=== PATIENT | male | born 1950 | race Caucasian/White ===

== ENCOUNTER 2020-12-18 20:41 | Inpatient (IN) | payer MEDICARE ==
[~2020-12-18] VITALS: Ht 170.2 cm; Wt 93.1 kg
[2020-12-18] MEDS ORDERED: EPINEPHRINE (1:1000) 1 MG/ML AMPUL ONE ×2 (20:54→21:09)
--- NOTE | 2020-12-18 20:58 | NUR ---
PATIENT CAME TO THE ER BED 5 BIBSELF C/O SWOLLEN TONGUE AND FEELS LIKE HIS THROAT IS CLOSING. PATIENT DENIES SHORTNESS OF BREATH. PATIENT IS CALM. PATIENT DENIES TAKING ANY MEDICATION EXCEPT HIS HYPERTENSION MEDICATION IN THE MORNING. ALERT AND ORIENTED x4. BREATHING EVENLY AND UNLABORED ON ROOM AIR AT 95%. CONNECTED TO THE SPANISHER.
[2020-12-18] MEDS ORDERED: NS 0.9% IV ONE (21:00)
[2020-12-18] MEDS ORDERED: TRANEXAMIC ACID IV ONE (21:00)
[2020-12-18] MEDS ORDERED: DEXAMETHASONE SOD PHOSPHATE 10 MG/ML VIAL IV ONE (21:00)
[2020-12-18] MEDS ORDERED: diphenhydrAMINE HCL 50 MG/ML VIAL IV ONE (21:00)
[2020-12-18] MEDS ORDERED: EPINEPHRINE (1:1000) MDV 30 MG/30ML VIAL SUBCUT ONE (21:00)
--- NOTE | 2020-12-18 21:05 | NUR ---
PATIENT'S DAUGHTER(S) LEFT NUMBERS: MIHAELA [phone] KATT [phone]
[2020-12-18] MEDS ORDERED: DEXAMETHASONE SOD PHOSPHATE 10 MG/ML VIAL ONE (21:10)
[2020-12-18] MEDS ORDERED: diphenhydrAMINE HCL 50 MG/ML VIAL ONE (21:10)
[2020-12-18 21:17] LABS: BASOPHILS # (AUTO) 0.2 K/uL (0.0-0.2); BASOPHILS % (AUTO) 3.7 % (0.0-2.0); EOSINOPHILS % (AUTO) 3.9 % (0.0-6.0); HEMATOCRIT 41 % (39-51); HEMOGLOBIN 13.9 g/dL (13.5-17.5); LYMPHOCYTES # (AUTO) 0.9 K/uL (0.8-4.8); LYMPHOCYTES % (AUTO) 21.3 % (20.0-44.0); MEAN CORPUSCULAR HGB CONC 34 g/dl (31.0-36.0); MEAN CORPUSCULAR VOLUME 99 fL (80-96); MONOCYTES # (AUTO) 0.6 K/uL (0.1-1.30); MONOCYTES % (AUTO) 13.8 % (2.0-12.0); NEUTROPHILS # (AUTO) 2.5 K/uL (1.8-8.9); NEUTROPHILS % (AUTO) 57.3 % (43.0-81.0); PLATELET COUNT (AUTO) 177 K/uL (150-450); RED BLOOD CELL COUNT(AUTO) 4.13 MIL/uL (4.5-6.0); WHITE BLOOD COUNT (AUTO) 4.3 K/uL (4.3-11.0)
[2020-12-18 21:24] LABS: CALCIUM, SERUM 8.5 mg/dL (8.5-10.1); CREATININE 0.8 mg/dL (0.6-1.3); POTASSIUM 3.6 mmol/L (3.5-5.1)
--- NOTE | 2020-12-18 21:42 | NUR ---
MOVE SHEET SUBMITTED AND CALLED FOR BED.
--- NOTE | 2020-12-18 21:44 | NUR ---
HOSPITALIST SPEAKING WITH DR. CARBAJAL.
--- NOTE | 2020-12-18 21:58 | NUR ---
COVID SWAB DONE AND SENT TO LAB
--- NOTE | 2020-12-18 22:14 | NUR ---
RECIEVED BED 251
[2020-12-18] MEDS ORDERED: ONDANSETRON HCL/PF 4 MG/2 ML VIAL IVP PRN (22:30)
[2020-12-18] MEDS ORDERED: ACETAMINOPHEN 325 MG TABLET PO PRN (22:30)
--- NOTE | 2020-12-18 22:31 | NUR ---
REPORT GIVEN TO MIO ZAPATA FOR CLARENCE
--- NOTE | 2020-12-18 22:45 | NUR ---
PT WAS TRANSPORTED TO UNIT ON [facility] EMT ADN RN AT BEDSIDE W/ ACLS PROTOCOL. NAD NOTED DURING TRANSPORT.
--- NOTE | 2020-12-18 23:00 | NUR ---
LEACH TANK TENDER: ADMITTED PT TO ICU FROM ED FOR ANGIOEDEMA. PT IS A/OX4, ON 2L 02 VIA NC. NO ACUTE DISTRESS, NO C/O PAIN. NOTED UNCLEAR SPEECH DUE TO TONGUE SWELLING. SR ON DENTAL SECRETARY. SKIN CHECK ASSESSED WITH GENERALIZED PSORIASIS PER PATIENT. PICTURES TAKEN. PT. GAVE CONSENT FOR PLASMA TRANSFUSION. HOB ON HIGH-WILL'S FOR ELEVATED BP, BED IN LOWEST POSITION AND LOCKED, BED ALARM ACTIVATED, SIDE RAILS UPX2. CALL LIGHT WITHIN REACH. WILL CONTINUE TO MONITOR. AWAITING FOR BLOOD BANK TO RELEASE PLASMA.
[2020-12-18 23:05] VITALS: BP 161/94
--- NOTE | 2020-12-18 23:09 | NUR ---
PHARMACY CALLED TO SELVIN TXA ORDER. ORDER DID NOT SHOW UP ON EMAR TUS MEDICATION WAS NOT GIVEN. UNFORTUNATELY ORDER DOES NOT HAVE DOSAGE. SPOKE WITH OSMEL ROJO NP REGARDING THE TXA IF HE WANTS IT TO BE GIVEN. NO NEED FOR TXA D/T PT IS GOING TO RECEIVE FRESH FROZEN PLASMA.
[2020-12-18 23:15] VITALS: BP 168/92
[2020-12-18] MEDS: ENOXAPARIN SODIUM 40 MG/0.4 ML DISP.SYRIN SQ SCH (23:17)
[2020-12-18 23:30] VITALS: BP 169/98
[2020-12-18 23:46] VITALS: BP 169/99
[2020-12-19] VITALS (68 sets, daily range): BP systolic 123–183; BP diastolic 77–114
[2020-12-19] MEDS ORDERED: hydrALAZINE HCL IV 20 MG VIAL IV PRN ×2 (01:30→03:45)
--- NOTE | 2020-12-19 01:55 | NUR ---
ARCHITECTURE DEPARTMENT CHAIR: FIRST UNIT OF FFP TRANSFUSION STARTED. PT GIVEN HYDRALAZINE FOR ELEVATED BP PRIOR TO TRANSFUSION. STILL HIGH BP NOTED. VERBALIZED RELIEF FROM HEADACHE AFTER GIVEN TYLENOL. WILL CONTINUE TO MONITOR.
--- NOTE | 2020-12-19 03:35 | NUR ---
INFORMATION SECURITY SPECIALIST: 1 UNIT FFP TRANSFUSED WT NO ADVERSE REACTIONS. BP STILL ELEVATED DESPITE S/P HYDRALAZINE. PAGED HOSPITALIST. AWAITNG CALL BACK.
--- NOTE | 2020-12-19 03:44 | NUR ---
ADVERTISING COPY WRITER: OSMEL ROJO DNP HOSPITALIST CALLED BACK AND MADE AWARE OF UNRESOLVED ELEVATED BP. DNP WT ORDER TO INCREASE HYDRALAZINE TO 10MG Q4H FOR SBP ABOVE 170 AND OK TO GIVE DOSE ANYTIME NEEDED. NOTED AND CARRIED OUT.
--- NOTE | 2020-12-19 05:30 | NUR ---
MOTHER HELPER: 2ND UNIT FFP TRANSFUSED WT NO ADVERSE REACTIONS. PT STILL NOTED WT ELEVATED BP SINCE ADMISSION & EVEN WITH 2ND DOSE OF INCREASED HYDRALAZINE ADMINISTRATION. SOUNDSCRIBER MECHANIC HOSPITALIST PAGED. AWAITING CALL BACK.
[2020-12-19] MEDS ORDERED: CARV12.5 PO (05:51)
[2020-12-19] MEDS ORDERED: AMLO5TAB4 PO (05:51)
[2020-12-19] MEDS ORDERED: MONT10TA22 PO (06:36)
[2020-12-19] MEDS ORDERED: ASPI-1169 PO (06:36)
--- NOTE | 2020-12-19 06:50 | NUR ---
METAL FURNITURE PANEL COVERER: HOSPITALIST CALLED BACK AND MADE AWARE OF CONTINUED ELEVATED BP THROUGHOUT THE SHIFT. MED RECON. DONE WT THE PATIENT. DNP SAID HE WILL PLACE ORDERS. SO SIGNIFICANT CLARENCE. STILL WT UNCLEAR SPEECH DUE TO TONGUE SWELLING. SR-ST WT HR IN LOW 100s WHEN STANDING UP TO VOID. AM LAB BLOOD DRAWN. SAFETY PRECAUTION NOTED AT ALL TIMES.
[2020-12-19 06:54] LABS: BASOPHILS % (AUTO) 0.9 % (0.0-2.0); HEMATOCRIT 44 % (39-51); HEMOGLOBIN 15.1 g/dL (13.5-17.5); LYMPHOCYTES # (AUTO) 0.4 K/uL (0.8-4.8); LYMPHOCYTES % (AUTO) 9.1 % (20.0-44.0); MEAN CORPUSCULAR HGB CONC 35 g/dl (31.0-36.0); MEAN CORPUSCULAR VOLUME 98 fL (80-96); MONOCYTES % (AUTO) 1.1 % (2.0-12.0); NEUTROPHILS # (AUTO) 3.5 K/uL (1.8-8.9); NEUTROPHILS % (AUTO) 88.9 % (43.0-81.0); PLATELET COUNT (AUTO) 179 K/uL (150-450); RED BLOOD CELL COUNT(AUTO) 4.45 MIL/uL (4.5-6.0); WHITE BLOOD COUNT (AUTO) 3.9 K/uL (4.3-11.0)
[2020-12-19 07:01] LABS: CREATININE 0.7 mg/dL (0.6-1.3); POTASSIUM 3.8 mmol/L (3.5-5.1)
--- NOTE | 2020-12-19 07:30 | NUR ---
LAY OUT WORKER OPENING NOTE PT SEATED IN BED EATING BREAKFAST, A/Ox4, BREATHING RA, SPO2 95%, NO SIGNS OF RESP DISTRESS OR SOB. PT DENIES PAIN AT THIS MOMENT. PT ON TELE MONITOR SR 90'S TO ST 100'S. PT SKIN INTACT, PATCHES OF PSORIASIS NOTED. PT RAC # 18 AND LT HAND #18, FLUSHED, PATENT AND INTACT, BOTH SL. NO SWELLING NOTED IN TONGUE. PT ABLE TO STAND AND USE URINAL. ALL PT SAFETY PRECAUTIONS IN PLACE, WILL CONT TO MONITOR
--- NOTE | 2020-12-19 07:40 | NUR ---
WOUND CARE CONSULT: PT PRESENTS WITH SOME PATCHES OF PSORIASIS, PRESENT ON ADMISSION. PT IS INDEPENDENT WITH BED MOBILITY AND IS CONTINENT. PT STATES WILL FOLLOW UP WITH HIS AEROSPACE PROJECT ENGINEER AFTER DISCHARGE. WILL SEE PRN.
[2020-12-19 07:50] LABS: MAGNESIUM 1.2 mg/dL (1.8-2.4)
--- NOTE | 2020-12-19 08:30 | NUR ---
RN NOTE DR CABRERA AWARE OF PT MG LEVEL OF 1.2
[2020-12-19] MEDS: Magnesium 1GM/D5W 100ML PREMIX 100 ML IV SCH ×4 (08:47→12:33)
[2020-12-19] MEDS: AMLODIPINE BESYLATE 10 MG TABLET PO SCH (08:47)
[2020-12-19] MEDS: MONTELUKAST SODIUM (10MG) 10 MG TABLET PO SCH (08:47)
[2020-12-19] MEDS: ASPIRIN 81 MG TAB.CHEW PO SCH (08:47)
[2020-12-19] MEDS: CARVEDILOL 12.5 MG TABLET PO SCH ×2 (08:47→16:02)
[2020-12-19] MEDS: PANTOPRAZOLE 40 MG VIAL IV SCH (08:47)
--- NOTE | 2020-12-19 13:21 | NUR ---
MIO N OTE TELEPHONE REPORT GIVEN TO MIO CRAIN
--- NOTE | 2020-12-19 13:58 | NUR ---
RN NOTE PT TRANSFERRED TO ROM 308-1 IN STABLE CONDITION. PT ON RA SPO2 >94%, NO SOB OR RESP DISTRESS. ALL PT SAFETY PRECAUTIONS IN PLACE. MIO CRAIN, RECEIVED PT IN ROOM
--- NOTE | 2020-12-19 14:09 | NUR ---
RN NOTE RECEIVED PT INTO BED 308-2. PT AWAKE AND ALERT AND IN STABLE CONDITION. WILL CONTINUE TO MONITOR.
--- NOTE | 2020-12-19 17:16 | NUR ---
RN NOTE PT MED OF CARVEDILOL 12.5 MG DROPPED AND CONTAMINATED. SECOND PILL DRAWN FROM PYXIS TO ADMINISTER TO PT.
--- NOTE | 2020-12-19 17:31 | NUR ---
RN CLOSING NOTE PT AWAKE IN BED EATING DINNER. PT IS ON RA WITH NO SOB OR RESPIRATORY DISTRESS PRESENT. A/O X4 AND MONGOLIAN SPEAKING. NO COMPLAINT OF PAIN OR NAUSEA PRESENT. ON POURER. NO EDEMA PRESENT. PT IS SELF AMBULATORY WITH BATHROOM PRIVILEGES. STEADY GAIT. PSORIASIS PRESENT. ON CARDIAC DIET. IV PRESENT ON L HAND 18G AND FLUSHES WELL. LABS AND ORDERS REVIEWED. ROUTINE MEDS GIVEN. SAFETY MEASURES IN PLACE. SIDE RAILS RAISED. BED LOWERED. CALL LIGHT WITHIN REACH. WILL CONTINUE TO MONITOR.
[2020-12-19] MEDS: ENOXAPARIN SODIUM 40 MG/0.4 ML DISP.SYRIN SQ SCH ×2 (21:45→21:55)
[2020-12-20] VITALS: BP 142/77
[2020-12-20 04:00] VITALS: BP 148/84
[2020-12-20 06:23] LABS: BASOPHILS % (AUTO) 0.5 % (0.0-2.0); EOSINOPHILS % (AUTO) 0.1 % (0.0-6.0); HEMATOCRIT 41 % (39-51); LYMPHOCYTES # (AUTO) 0.6 K/uL (0.8-4.8); LYMPHOCYTES % (AUTO) 9.2 % (20.0-44.0); MEAN CORPUSCULAR HGB CONC 35 g/dl (31.0-36.0); MEAN CORPUSCULAR VOLUME 98 fL (80-96); MONOCYTES # (AUTO) 0.8 K/uL (0.1-1.30); NEUTROPHILS # (AUTO) 5.3 K/uL (1.8-8.9); NEUTROPHILS % (AUTO) 78.2 % (43.0-81.0); PLATELET COUNT (AUTO) 175 K/uL (150-450); RED BLOOD CELL COUNT(AUTO) 4.15 MIL/uL (4.5-6.0); WHITE BLOOD COUNT (AUTO) 6.8 K/uL (4.3-11.0)
[2020-12-20 07:21] LABS: CALCIUM, SERUM 8.9 mg/dL (8.5-10.1); CREATININE 0.8 mg/dL (0.6-1.3); MAGNESIUM 1.8 mg/dL (1.8-2.4); PHOSPHORUS 2.6 mg/dL (2.5-4.9); POTASSIUM 3.5 mmol/L (3.5-5.1)
--- NOTE | 2020-12-20 07:37 | NUR ---
RN OPENING NOTE PT AWAKE IN BED EATING BREAKFAST. PT IS ON RA WITH NO SOB OR RESPIRATORY DISTRESS PRESENT. A/O X4 AND NEW ZEALANDER SPEAKING. NO COMPLAINT OF PAIN OR NAUSEA PRESENT. ON STEAM SETTER. NO EDEMA PRESENT. PT IS SELF AMBULATORY WITH BATHROOM PRIVILEGES. STEADY GAIT. PSORIASIS PRESENT. ON CARDIAC DIET. IV PRESENT ON L HAND 18G AND FLUSHES WELL. LABS AND ORDERS REVIEWED. SAFETY MEASURES IN PLACE. SIDE RAILS RAISED. BED LOWERED. CALL LIGHT WITHIN REACH. WILL CONTINUE TO MONITOR
[2020-12-20 08:00] VITALS: BP 162/93
[2020-12-20] MEDS: MONTELUKAST SODIUM (10MG) 10 MG TABLET PO SCH (08:42)
[2020-12-20] MEDS: ASPIRIN 81 MG TAB.CHEW PO SCH (08:42)
[2020-12-20 08:43] VITALS: BP 162/93
[2020-12-20] MEDS: AMLODIPINE BESYLATE 10 MG TABLET PO SCH (08:43)
[2020-12-20] MEDS: PANTOPRAZOLE 40 MG VIAL IV SCH (08:43)
[2020-12-20] MEDS: CARVEDILOL 12.5 MG TABLET PO SCH (08:43)
--- NOTE | 2020-12-20 14:34 | NUR ---
RN NOTE RECEIVED NOTE FROM ROGER FROM [facility] THAT PT IS MRSA POSITIVE. NO S/S OF DISTRESS. MD AWAKE. NO NEW ORDERS. WILL CONTINUE TO MONITOR.
[2020-12-20] MEDS ORDERED: CARV12.52 PO (15:38)
[2020-12-20] MEDS ORDERED: AMLO-213 PO (15:38)
[2020-12-20] MEDS ORDERED: CARVEDILOL 12.5 MG TABLET PO SCH (17:00)
== END 2020-12-20 14:55 | disposition home or self-care (01) | DRG 916 ==
LOC: ER 20:41 → TRANSITION 22:01 → ICU 22:19 → TELE 12-19 13:55
PROVIDERS: ADMIT Nurse Practitioner Family; ATTEND Student in an Organized Health Care Education/Training Program
PROC: 30233K1 Transfusion of Nonautologous Frozen Plasma into Peripheral Vein, Percutaneous Approach (ICD-10-PCS; principal; 2020-12-19)
DX: T78.3XXA Angioneurotic edema, initial encounter (principal); T46.4X5A Adverse effect of angiotensin-converting-enzyme inhibitors, initial encounter; Y84.8 Other medical procedures as the cause of abnormal reaction of the patient, or of later complication, without mention of misadventure at the time of the procedure; Y92.009 Unspecified place in unspecified non-institutional (private) residence as the place of occurrence of the external cause; Z20.822 Contact with and (suspected) exposure to COVID-19; E78.5 Hyperlipidemia, unspecified; Y92.039 Unspecified place in apartment as the place of occurrence of the external cause; Z82.49 Family history of ischemic heart disease and other diseases of the circulatory system; Z88.0 Allergy status to penicillin; E83.42 Hypomagnesemia; I10 Essential (primary) hypertension; L40.9 Psoriasis, unspecified; Z90.49 Acquired absence of other specified parts of digestive tract
CPT/HCPCS: 36415; 80048-TC; 80061-TC; 83735-TC; 84100-TC; 85025-TC; 86850-TC; 87081-TC; C9113; G0378; J0171; J0360; J1100; J1200; J1650; J3475; J7050; P9017

== ENCOUNTER 2021-05-08 16:28 | Inpatient (IN) | payer MEDICARE ==
[~2021-05-08] VITALS: Ht 167.6 cm; Wt 90.7 kg
[~2021-05-08 16:28] MED LIST: AMLO-213 PO; AMLO5TAB4 PO; ASPI-1169 PO; CARV12.5 PO; CARV12.52 PO; MONT10TA22 PO
--- NOTE | 2021-05-08 16:39 | NUR ---
To ER bed 16, "Last wednesday while walking home I was wheezing. Feel SOB", aaox3, connected to monitor, awaiting md orders
--- NOTE | 2021-05-08 16:40 | NUR ---
OXYGEN SATURATION IN ROOM AIR IS AT 91%. THE PATIENT IS PLACED ON OXYGEN AT 3L/MIN VIA NASAL CANNULA AND SATURATION LEVEL IMPORVED TO 95%.
--- NOTE | 2021-05-08 16:42 | NUR ---
DR ROCHE AT THE BEDSIDE
[2021-05-08] MEDS ORDERED: ASPIRIN 325 MG TABLET PO ONE (17:00)
[2021-05-08] MEDS ORDERED: NITROGLYCERIN PACKET 1 GM PACKET TD ONE (17:00)
[2021-05-08] MEDS ORDERED: NITROGLYCERIN PACKET 1 GM PACKET ONE (17:07)
[2021-05-08] MEDS ORDERED: ASPIRIN 325 MG TABLET ONE (17:08)
[2021-05-08 17:33] LABS: BASOPHILS # (AUTO) 0.1 K/uL (0.0-0.2); EOSINOPHILS % (AUTO) 5.5 % (0.0-6.0); HEMATOCRIT 20 % (39-51); LYMPHOCYTES # (AUTO) 0.8 K/uL (0.8-4.8); LYMPHOCYTES % (AUTO) 17.2 % (20.0-44.0); MEAN CORPUSCULAR HGB CONC 31 g/dl (31.0-36.0); MEAN CORPUSCULAR VOLUME 76 fL (80-96); MONOCYTES # (AUTO) 0.6 K/uL (0.1-1.30); MONOCYTES % (AUTO) 14.3 % (2.0-12.0); NEUTROPHILS # (AUTO) 2.7 K/uL (1.8-8.9); PLATELET COUNT (AUTO) 276 K/uL (150-450); RED BLOOD CELL COUNT(AUTO) 2.68 MIL/uL (4.5-6.0); WHITE BLOOD COUNT (AUTO) 4.4 K/uL (4.3-11.0)
[2021-05-08 17:34] LABS: HEMOGLOBIN 6.2 g/dL (13.5-17.5)
[2021-05-08 17:42] LABS: CALCIUM, SERUM 8.7 mg/dL (8.5-10.1); CARBON DIOXIDE 23 mmol/L (21-32); CHLORIDE 103 mmol/L (98-107); CREATININE 0.9 mg/dL (0.6-1.3); GLUCOSE 110 mg/dL (74-106); SODIUM SERUM 140 mmol/L (136-145); UREA NITROGEN, BLOOD 14 mg/dL (7-18)
--- NOTE | 2021-05-08 17:43 | NUR ---
COVID SWAB DONE AND SENT TO LAB
--- NOTE | 2021-05-08 17:48 | NUR ---
dr gresham at bedside
[2021-05-08 17:54] LABS: ALANINE AMINOTRANSFERASE 40 U/L (12-78); ALBUMIN 3.6 g/dL (3.4-5.0); ALKALINE PHOSPHATASE 83 U/L (46-116); ASPARTATE AMINOTRANSFERASE 67 U/L (15-37); BILIRUBIN,DIRECT 0.3 mg/dL (0.0-0.2)
--- NOTE | 2021-05-08 17:57 | NUR ---
PAGED [facility].
[2021-05-08 17:59] LABS: NEUTROPHILS % (MANUAL) 63 (42-76)
--- NOTE | 2021-05-08 17:59 | NUR ---
CALLED NURSING SUP REGARDING PT BED
[2021-05-08 18:00] LABS: EOSINOPHILS % (MANUAL) 8 % (0-4); LYMPHOCYTES % (MANUAL) 18 % (16-48); MONOCYTES % (MANUAL) 11 % (0-11.0)
[2021-05-08 18:19] LABS: OCCULT BLOOD STOOL NEGATIVE (NEGATIVE)
[2021-05-08] MEDS ORDERED: PANT40TA49 PO (18:28)
--- NOTE | 2021-05-08 19:30 | NUR ---
CALLED FOR BED ASSIGNMENT
[2021-05-08 20:30] VITALS: BP 143/64
--- NOTE | 2021-05-08 20:57 | NUR ---
REPORT GIVEN TO MIO BURNSCAITLYN
--- NOTE | 2021-05-08 21:30 | NUR ---
GARAGE DOOR INSTALLERFURRIER DESIGNER NOTES RECEIVED NEW ADMIT FROM ER PER NABOR THIS 70 Y.O. MALE,ALERT,ORIENTED X4,AMBULATORY WITH STEADY GAIT,BREATHING REGULAR,NOT IN ANY FORM OF DISTRESS.1 UNIT OF PRBC ONGOING VIA IV PUMP ON RIGHT AC,SITE PATENT.NOTED SKIN RASH ON ABDOMEN.PATIENT SAYS HE HAS PSORIASIS.ABDOMEN DISTENDED BUT SOFT.DENIES SOB UPON ARRIVAL ON FLOOR,O2 SAT 95% ON ROOM AIR.CALL LIGHT IN REACH,NEEDS ANTICIPATED.
--- NOTE | 2021-05-08 21:39 | NUR ---
PATIENT TRANSFERRED UNDER ACLS
[2021-05-08] MEDS ORDERED: MAGNESIUM HYDROXIDE 30 ML UDC PO PRN (22:00)
[2021-05-08] MEDS ORDERED: ONDANSETRON HCL/PF 4 MG/2 ML VIAL IVP PRN (22:00)
[2021-05-08] MEDS ORDERED: ZOLPIDEM TARTRATE 5 MG TABLET PO PRN (22:00)
[2021-05-08] MEDS ORDERED: Z GUARD REMEDY 2 OZ OINT TP PRN (22:00)
[2021-05-08] MEDS ORDERED: MAG HYDROX/AL HYDROX/SIMETH 30 ML UDC PO PRN (22:00)
[2021-05-08] MEDS: PANTOPRAZOLE 40 MG VIAL IV SCH (22:42)
[2021-05-08 23:20] VITALS: BP 126/67
--- NOTE | 2021-05-08 23:20 | NUR ---
DOCK BUILDER NOTES 1 UNIT OF PRBC COMPLETED.NO ADVERSE REACTION NOTED.VITAL SIGNS WITH IN NORMAL LIMITS
[2021-05-09] VITALS: BP 126/62
[2021-05-09] MEDS: ACETAMINOPHEN 325 MG TABLET PO PRN ×2 (00:55→06:58)
--- NOTE | 2021-05-09 00:55 | NUR ---
COURT SPECIALIST NOTES C/O HEADACHE,TYLENOL 650MG PO GIVEN ORDERED FOR MILD PAIN
[2021-05-09 04:00] VITALS: BP_SYST 126; BP_DIAS 62; BP_DIAS 67
--- NOTE | 2021-05-09 06:26 | NUR ---
HYDRAULIC PRESS OPERATOR NOTES FAIRLY RESTED AT NIGHT,NO SOB NOTED.O2 SAT 97 % ON ROOM AIR,WITH MORNING LABS TODAY,CALL LIGHT IN REACH,NEEDS ATTENDED.
--- NOTE | 2021-05-09 07:30 | NUR ---
GAS FITTER APPRENTICE OPENING NOTE RECEIVED PT AWAKE IN BED. A/O X4. PT IS STABLE ON RA WITH NO SOB OR S/S OF RESPIRATORY DISTRESS NOTED. PT ON EXTERNAL HEAD OF ACQUISITIONS READING SR. PT HAS NO C/O PAIN OR DISCOMFORT AT THIS TIME. IV ACCESS IN RAC #18, INTACT AND PATENT. SAFETY PRECAUTIONS MAINTAINED. BED IN LOWEST LOCKED POSITION, HOB ELEVATED, SIDE RAILS UP X2. CALL LIGHT AND TABLE WITHIN REACH. WILL CONTINUE TO MONITOR.
[2021-05-09 08:34] VITALS: BP 150/82
[2021-05-09] MEDS: MONTELUKAST SODIUM (10MG) 10 MG TABLET PO SCH (08:34)
[2021-05-09] MEDS: PANTOPRAZOLE 40 MG VIAL IV SCH ×2 (08:35→16:42)
[2021-05-09] MEDS: AMLODIPINE BESYLATE 10 MG TABLET PO SCH (08:35)
[2021-05-09] MEDS: CARVEDILOL 12.5 MG TABLET PO SCH ×2 (08:35→16:42)
[2021-05-09 11:50] LABS: CALCIUM, SERUM 8.3 mg/dL (8.5-10.1); CREATININE 0.8 mg/dL (0.6-1.3); POTASSIUM 3.8 mmol/L (3.5-5.1)
[2021-05-09 11:58] LABS: BASOPHILS # (AUTO) 0.1 K/uL (0.0-0.2); BASOPHILS % (AUTO) 1.7 % (0.0-2.0); EOSINOPHILS % (AUTO) 4.2 % (0.0-6.0); HEMATOCRIT 23 % (39-51); HEMOGLOBIN 7.2 g/dL (13.5-17.5); LYMPHOCYTES # (AUTO) 0.7 K/uL (0.8-4.8); LYMPHOCYTES % (AUTO) 13.7 % (20.0-44.0); MEAN CORPUSCULAR HGB CONC 32 g/dl (31.0-36.0); MEAN CORPUSCULAR VOLUME 78 fL (80-96); MONOCYTES # (AUTO) 0.7 K/uL (0.1-1.30); MONOCYTES % (AUTO) 15.4 % (2.0-12.0); NEUTROPHILS # (AUTO) 3.2 K/uL (1.8-8.9); PLATELET COUNT (AUTO) 230 K/uL (150-450); WHITE BLOOD COUNT (AUTO) 4.9 K/uL (4.3-11.0)
[2021-05-09 12:05] LABS: THYROID STIMULATING HORMONE 2.647 uIU/mL (0.358-3.74)
[2021-05-09 12:35] LABS: EOSINOPHILS % (MANUAL) 5 % (0-4); LYMPHOCYTES % (MANUAL) 13 % (16-48); MONOCYTES % (MANUAL) 14 % (0-11.0); NEUTROPHILS % (MANUAL) 68 (42-76)
[2021-05-09 16:18] VITALS: BP 150/82
[2021-05-09] MEDS: SOD FERRIC GLUC 125 MG in IV NS 0.9% 100 ML IV SCH (16:24)
--- NOTE | 2021-05-09 18:28 | NUR ---
GRAIN MILLER HELPER CLOSING NOTE PT AWAKE IN BED. A/O X4. PT ON 3 LPM VIA NC, O2 SAT 99%. NO SOB OR S/S OF RESPIRATORY DISTRESS NOTED. PT ON EXTERNAL COLLIERY CLERK READING SR @ 82. PT HAS NO C/O PAIN OR DISCOMFORT AT THIS TIME. IV ACCESS IN RAC #18, INTACT AND PATENT. ALL NEEDS MET AT THIS TIME. SAFETY PRECAUTIONS MAINTAINED AT ALL TIMES. BED IN LOWEST LOCKED POSITION, HOB ELEVATED, SIDE RAILS UP X2. CALL LIGHT AND TABLE WITHIN REACH. WILL ENDORSE TO ONCOMING NURSE FOR CLARENCE.
--- NOTE | 2021-05-09 19:27 | NUR ---
COLLECTION SYSTEMS MODELER OPENING NOTES RECEIVED PT AWAKE IN BED. A/O X4. PT ON 3 LPM VIA NC, O2 SAT 97%. NO SOB OR S/S OF RESPIRATORY DISTRESS NOTED. PT ON EXTERNAL COURSE INSTRUCTOR WITH CURRENT READING NSR, PVC HR 83. PT DENIES OF PAIN OR DISCOMFORT AT THIS TIME. IV ACCESS IN RAC #18, INTACT AND PATENT. SAFETY PRECAUTIONS MAINTAINED AT ALL TIMES. BED IN LOWEST LOCKED POSITION, HOB ELEVATED, SIDE RAILS UP X2. CALL LIGHT AND TABLE WITHIN REACH. WILL CONTINUE TO MONITOR PATIENT ACCORDINGLY.
--- NOTE | 2021-05-09 19:29 | NUR ---
LODGING FACILITIES ATTENDANT NOTES PER REPORT OF AM SHIFT NURSE, DR. FERNANDEZ ORDERED NPO POST M.N FOR GI CONSULT IN AM. NOTED AND COMMUNICATED WITH PT. AND STAFF.
[2021-05-09 20:00] VITALS: BP 142/65
[2021-05-10] VITALS (10 sets, daily range): BP systolic 126–156; BP diastolic 65–89
--- NOTE | 2021-05-10 06:16 | NUR ---
LOGGING TRACTOR OPERATOR SWAMP CLOSING NOTES PT AWAKE IN BED. A/O X4. PT ON 3 LPM VIA NC, O2 SAT 92-93%. NO SOB OR S/S OF RESPIRATORY DISTRESS NOTED. PT ON EXTERNAL PATTERN CLEANER WITH CURRENT READING NSR, HR 81. PT DENIES OF PAIN OR DISCOMFORT AT THIS TIME. IV ACCESS IN RAC #18, INTACT AND PATENT. ALL NEEDS ATTENDED. ADVISED PT. STILL ON NPO. SAFETY PRECAUTIONS MAINTAINED AT ALL TIMES. BED IN LOWEST LOCKED POSITION, HOB ELEVATED, SIDE RAILS UP X2. CALL LIGHT AND TABLE WITHIN REACH. WILL ENDORSED TO DAYTIME SHIFT NURSE FOR CLARENCE.
[2021-05-10 07:07] LABS: BASOPHILS # (AUTO) 0.1 K/uL (0.0-0.2); BASOPHILS % (AUTO) 1.9 % (0.0-2.0); EOSINOPHILS % (AUTO) 3.6 % (0.0-6.0); HEMATOCRIT 22 % (39-51); LYMPHOCYTES # (AUTO) 0.7 K/uL (0.8-4.8); LYMPHOCYTES % (AUTO) 12.1 % (20.0-44.0); MEAN CORPUSCULAR HGB CONC 31 g/dl (31.0-36.0); MEAN CORPUSCULAR VOLUME 79 fL (80-96); MONOCYTES # (AUTO) 0.8 K/uL (0.1-1.30); MONOCYTES % (AUTO) 13.5 % (2.0-12.0); NEUTROPHILS % (AUTO) 68.9 % (43.0-81.0); PLATELET COUNT (AUTO) 235 K/uL (150-450); RED BLOOD CELL COUNT(AUTO) 2.81 MIL/uL (4.5-6.0); WHITE BLOOD COUNT (AUTO) 5.8 K/uL (4.3-11.0)
[2021-05-10 07:19] LABS: HEMOGLOBIN 6.9 g/dL (13.5-17.5)
[2021-05-10 07:29] LABS: CALCIUM, SERUM 8.5 mg/dL (8.5-10.1); CREATININE 0.8 mg/dL (0.6-1.3); MAGNESIUM 1.9 mg/dL (1.8-2.4); POTASSIUM 3.7 mmol/L (3.5-5.1)
--- NOTE | 2021-05-10 07:52 | NUR ---
RESEARCH DIRECTOR CLOSING NOTES PT RESTING IN BED. PT ON 3 L VIA NC, NO SOB, NO RESPIRATORY DISTRESS NOTED. PT ON EXTERNAL TELE MONITOR, NSR. IV ACCESS IN RAC #18, INTACT AND PATENT. PT ON NPO, ON IV MEDS ONLY. SAFETY PRECAUTIONS MAINTAINED AT ALL TIMES. BED IN LOWEST LOCKED POSITION, HOB ELEVATED, SIDE RAILS UP X2. CALL LIGHT AND TABLE WITHIN REACH.
[2021-05-10 08:28] LABS: BAND % (MANUAL) 1 % (0.0-5.0); LYMPHOCYTES % (MANUAL) 6 % (16-48); MONOCYTES % (MANUAL) 12 % (0-11.0); NEUTROPHILS % (MANUAL) 81 (42-76)
[2021-05-10] MEDS: PANTOPRAZOLE 40 MG VIAL IV SCH ×2 (08:36→17:10)
[2021-05-10] MEDS: AMLODIPINE BESYLATE 10 MG TABLET PO SCH (08:36)
[2021-05-10] MEDS: CARVEDILOL 12.5 MG TABLET PO SCH ×2 (08:37→17:11)
[2021-05-10] MEDS: MONTELUKAST SODIUM (10MG) 10 MG TABLET PO SCH ×2 (08:38→11:31)
[2021-05-10] MEDS: ALBUTEROL FS 2.5 MG/3 ML VIAL.NEB NEB PRN ×2 (10:16→20:09)
[2021-05-10] MEDS: methylPREDNISolone SOD SUCC 40 MG/ML VIAL IV SCH ×2 (11:31→17:11)
[2021-05-10] MEDS: SOD FERRIC GLUC 125 MG in IV NS 0.9% 100 ML IV SCH (14:00)
--- NOTE | 2021-05-10 18:50 | NUR ---
RN CLOSING NOTES PT SITTING IN BED, A/O X4, RESPONSIVE AND FOLLOWS DIRECTIONS, AMBULATORY, NO SOB, NO RR DISTRESS, ADMINISTERED ALL MEDS ORDERED, ON EXTERNAL TELE MONITOR WITH SR IN 80S, IV ACCESS AT RIGHT AC WITH GAUGE #20, PATENT AND INTACT, SAFETY PRECAUTIONS MET, BED LOCKED AND IN LOWEST POSITION, CALL LIGHT WITHIN REACH, WILL ENDORSE TO NEXT SHIFT FOR CONTINUITY OF CARE.
--- NOTE | 2021-05-10 19:40 | NUR ---
TRIMMING MACHINE SET UP OPERATOR OPENING NOTES PATIENT AWAKE IN BED WATCHING TV, ALERT/ORIENTED X 4, PT ABLE TO MAKE NEEDS KNOWN. PT DENIES PAIN OR DISCOMFORT AT THIS TIME. PT STABLE ON 3LPM OF OXYGEN VIA NASAL CANNULA, NO S/S OF DISTRESS OR SOB NOTED, BREATHING EVEN AND UNLABORED, SPO2: 99%. PT ON EXTERNAL PRODUCTION CONTROL PEGBOARD CLERK READING SINUS RHYTHM, HR: 70. IV ACCESS ON RIGHT AC #20G INTACT AND SALINE LOCKED. PATIENT WILL BE NPO AT MIDNIGHT FOR GI CONSULT TOMORROW, EXPLAINED TO PT AND PT VERBALIZED UNDERSTANDING. PT REQUESTED PRN BREATHING TREATMENT, RT CALLED. SAFETY MEASURES IN PLACE: CALL LIGHT WITHIN REACH, SIDE RAILS UP X 2, HOB ELEVATED, BED LOCKED IN LOW POSITION. WILL CONTINUE TO MONITOR PATIENT
[2021-05-11] VITALS (9 sets, daily range): BP systolic 125–145; BP diastolic 64–79
--- NOTE | 2021-05-11 07:19 | NUR ---
FURNACE CLERK CLOSING NOTES PATIENT AWAKE IN BED, ALERT/ORIENTED X 4, PT ABLE TO MAKE NEEDS KNOWN. NO SIGNIFICANT CHANGES THROUGHOUT SHIFT, PT SLEPT WELL THROUGHOUT THE NIGHT. PT STABLE ON 3LPM OF OXYGEN PRN VIA NASAL CANNULA, NO S/S OF DISTRESS OR SOB NOTED, BREATHING EVEN AND UNLABORED. PT ON EXTERNAL DRAGGER OUT READING SINUS RHYTHM. IV ACCESS ON RIGHT AC #20G INTACT AND SALINE LOCKED. PATIENT NPO SINCE MIDNIGHT FOR GI CONSULT WITH DR. MOREIRA. PT NEEDS MET THROUGHOUT SHIFT. SAFETY MEASURES IN PLACE: CALL LIGHT WITHIN REACH, SIDE RAILS UP X 2, HOB ELEVATED, BED LOCKED IN LOW POSITION. ENDORSED TO DAY SHIFT NURSE FOR CONTINUITY OF CARE
--- NOTE | 2021-05-11 07:30 | NUR ---
MEAT DRESSER OPENING NOTES RECEIVED PT AWAKE IN BED. A/O X4. ON 02 @3 LPM VIA NC, O2 SAT 97%. NO SOB OR S/S OF RESPIRATORY DISTRESS NOTED. ON EXTERNAL ASSISTANT BOILER OPERATOR WITH CURRENT READING NSR, HR 80. NO C/O PAIN OR DISCOMFORT AT THIS TIME. IV ACCESS IN RAC #20, INTACT AND PATENT. SAFETY PRECAUTIONS MAINTAINED AT ALL TIMES. BED IN LOWEST LOCKED POSITION, HOB ELEVATED, SIDE RAILS UP X2. CALL LIGHT AND TABLE WITHIN REACH. WILL CONTINUE TO MONITOR PATIENT.
[2021-05-11] MEDS: methylPREDNISolone SOD SUCC 40 MG/ML VIAL IV SCH ×2 (08:41→16:55)
[2021-05-11] MEDS: PANTOPRAZOLE 40 MG VIAL IV SCH ×2 (08:41→16:55)
[2021-05-11] MEDS: MONTELUKAST SODIUM (10MG) 10 MG TABLET PO SCH (08:42)
[2021-05-11] MEDS: CARVEDILOL 12.5 MG TABLET PO SCH ×2 (08:42→16:55)
[2021-05-11] MEDS: AMLODIPINE BESYLATE 10 MG TABLET PO SCH (08:42)
[2021-05-11 10:01] LABS: BASOPHILS % (AUTO) 0.4 % (0.0-2.0); HEMATOCRIT 24 % (39-51); HEMOGLOBIN 7.8 g/dL (13.5-17.5); LYMPHOCYTES # (AUTO) 0.6 K/uL (0.8-4.8); LYMPHOCYTES % (AUTO) 7.9 % (20.0-44.0); MEAN CORPUSCULAR HGB CONC 32 g/dl (31.0-36.0); MEAN CORPUSCULAR VOLUME 79 fL (80-96); MONOCYTES % (AUTO) 13.1 % (2.0-12.0); NEUTROPHILS # (AUTO) 5.8 K/uL (1.8-8.9); NEUTROPHILS % (AUTO) 78.6 % (43.0-81.0); PLATELET COUNT (AUTO) 212 K/uL (150-450); RED BLOOD CELL COUNT(AUTO) 3.09 MIL/uL (4.5-6.0); WHITE BLOOD COUNT (AUTO) 7.4 K/uL (4.3-11.0)
[2021-05-11 10:58] LABS: ALBUMIN 3.2 g/dL (3.4-5.0); BILIRUBIN,TOTAL 1.5 mg/dL (0.2-1.0); CALCIUM, SERUM 8.6 mg/dL (8.5-10.1); CREATININE 0.9 mg/dL (0.6-1.3); MAGNESIUM 1.8 mg/dL (1.8-2.4); POTASSIUM 3.8 mmol/L (3.5-5.1); TOTAL PROTEIN, SERUM 7.5 g/dL (6.4-8.2)
[2021-05-11 11:09] LABS: HEMOGLOBIN 7.7 g/dL (13.5-17.5)
[2021-05-11] MEDS ORDERED: KETAMINE HCL (500MG/10ML) 50 MG/ML VIAL ONE (11:13)
--- NOTE | 2021-05-11 11:20 | NUR ---
RN NOTES PT PICKED-UP BY 2 OR STAFF FOR EGD PROCEDURE. PT REMAINS IN STABLE CONDITION.
--- NOTE | 2021-05-11 13:00 | NUR ---
RN NOTES PT BACK FROM EGD PROCEDURE, IN STABLE CONDITION.
--- NOTE | 2021-05-11 13:04 | NUR ---
patient provided with dr. Stevenson's office contact info to make appointment.
[2021-05-11] MEDS: FERROUS SULFATE (325 MG) 325 MG/TAB TABLET PO SCH (16:55)
--- NOTE | 2021-05-11 18:54 | NUR ---
PAYMASTER OF PURSES CLOSING NOTES PT AWAKE oN BED. A/O X4. ON 02 @3 LPM VIA NC, O2 SAT 97%. NO SOB OR S/S OF RESPIRATORY DISTRESS NOTED. ON EXTERNAL RIGGER CHIEF WITH CURRENT READING NSR, HR 73. NO C/O PAIN OR DISCOMFORT AT THIS TIME. IV ACCESS IN RAC #20 AND RIGHT HAND #18G, INTACT AND PATENT. SAFETY PRECAUTIONS MAINTAINED AT ALL TIMES. BED IN LOWEST LOCKED POSITION, HOB ELEVATED, SIDE RAILS UP X2. CALL LIGHT AND TABLE WITHIN REACH. PT FOR BT OF 1PRBC. WILL ENDORSE TO NEXT SHIFT.
--- NOTE | 2021-05-11 19:45 | NUR ---
THERAPY SITE COORDINATOR OPENING NOTES PATIENT AWAKE IN BED WATCHING TV, ALERT/ORIENTED X 4, PT ABLE TO MAKE NEEDS KNOWN. PT DENIES PAIN OR DISCOMFORT AT THIS TIME. PT STABLE ON ROOM AIR, 3LPM OF OXYGEN VIA NASAL CANNULA PRN, NO S/S OF DISTRESS OR SOB NOTED, BREATHING EVEN AND UNLABORED, SPO2: 98%. PT ON EXTERNAL GENETIC COUNSELLOR READING SINUS RHYTHM. IV ACCESS ON RIGHT AC #20G INTACT AND FLUSHING WELL, RIGHT HAND IV ACCESS NOT FLUSHING AND REMOVED. DAY SHIFT NURSE ENDORSED 1 UNIT OF PRBC TRANSFUSION. SAFETY MEASURES IN PLACE: CALL LIGHT WITHIN REACH, SIDE RAILS UP X 2, HOB ELEVATED, BED LOCKED IN LOW POSITION. WILL CONTINUE TO MONITOR PATIENT
--- NOTE | 2021-05-11 20:55 | NUR ---
FIXER BOARDING ROOM NOTES BLOOD TRANSFUSION STARTED. PATIENT'S ARM BAND NOT SCANNING BUT PATIENT, , BLOOD TYPE, ETC. VERIFIED BY MIO GUEVARA. NEW ID BAND REQUESTED FROM ADMITTING. WILL CONTINUE TO MONITOR PATIENT
[2021-05-11] MEDS: ACETAMINOPHEN 325 MG TABLET PO PRN (22:02)
--- NOTE | 2021-05-11 22:05 | NUR ---
BROODMARE FOREMAN NOTES BLOOD TRANSFUSION ONGOING, PT'S TEMP 99.0. TYLENOL 650 MG PO GIVEN. ALL OTHER VITAL SIGNS WNL. WILL CONTINUE TO MONITOR PATIENT
[2021-05-12] VITALS: BP 140/72
[2021-05-12 00:10] VITALS: BP 140/72
--- NOTE | 2021-05-12 00:10 | NUR ---
CROWN WHEEL ASSEMBLER NOTE BLOOD TRANSFUSION FINISHED, PATIENT TOLERATED WELL. NO ADVERSE EFFECTS. VITAL SIGNS WNL. WILL CONTINUE TO MONITOR PATIENT
[2021-05-12 04:00] VITALS: BP 139/76
[2021-05-12 06:45] LABS: CALCIUM, SERUM 9.2 mg/dL (8.5-10.1)
[2021-05-12 06:56] LABS: BASOPHILS % (AUTO) 0.2 % (0.0-2.0); HEMATOCRIT 26 % (39-51); HEMOGLOBIN 8.5 g/dL (13.5-17.5); LYMPHOCYTES # (AUTO) 0.5 K/uL (0.8-4.8); MEAN CORPUSCULAR HGB CONC 32 g/dl (31.0-36.0); MEAN CORPUSCULAR VOLUME 80 fL (80-96); MONOCYTES # (AUTO) 0.9 K/uL (0.1-1.30); MONOCYTES % (AUTO) 9.8 % (2.0-12.0); NEUTROPHILS # (AUTO) 7.5 K/uL (1.8-8.9); PLATELET COUNT (AUTO) 256 K/uL (150-450); RED BLOOD CELL COUNT(AUTO) 3.29 MIL/uL (4.5-6.0); WHITE BLOOD COUNT (AUTO) 8.9 K/uL (4.3-11.0)
--- NOTE | 2021-05-12 07:32 | NUR ---
SWIMMER CLOSING NOTES PATIENT AWAKE IN BED, ALERT/ORIENTED X 4, PT ABLE TO MAKE NEEDS KNOWN. NO SIGNIFICANT CHANGES THROUGHOUT SHIFT, PT SLEPT WELL THROUGHOUT THE NIGHT. PT STABLE ON ROOM AIR, 3LPM OF OXYGEN PRN VIA NASAL CANNULA, NO S/S OF DISTRESS OR SOB NOTED, BREATHING EVEN AND UNLABORED. PT ON EXTERNAL COMMERCIAL LOAN COLLECTION OFFICER READING SINUS RHYTHM. IV ACCESS ON LEFT FOREARM #20G INTACT AND SALINE LOCKED. PT NEEDS MET THROUGHOUT SHIFT. SAFETY MEASURES IN PLACE: CALL LIGHT WITHIN REACH, SIDE RAILS UP X 2, HOB ELEVATED, BED LOCKED IN LOW POSITION. ENDORSED TO DAY SHIFT NURSE FOR CONTINUITY OF CARE
--- NOTE | 2021-05-12 07:45 | NUR ---
FISCAL ECONOMIST OPENING NOTE PT IS ASLEEP IN BED, EASY TO AROUSE. ALERT AND ORIENTED X 4. PT ON ROOM AIRN, TOLERATING WELL. NO S/SX OF DISTRESS, NO SOB. BREATHING IS EVEN AND UNLABORED. PT WITH EXTERNAL INSPECTOR OUTSIDE PRODUCTION READING SINUS RHYTHM 68. PT WITH IV ACCESS LFA#20 SL. SAFETY MEASURES IN PLACE WITH BED LOCKED AT LOW POSITION, SIDE RAILS UP X 2. WILL CONTINUE TO MONITOR PATIENT THROUGHOUT SHIFT. Addendum: 05/12/21 at 0757 by SAUD JOSEPH RN ERROR
--- NOTE | 2021-05-12 07:57 | NUR ---
CLOSING COORDINATOR OPENING NOTE PT IS ASLEEP IN BED, EASY TO AROUSE. ALERT AND ORIENTED X 4. PT ON 3L NASAL CANNULA WITH 02 SATURATION AT 97%. NO S/SX OF DISTRESS, NO SOB. BREATHING IS EVEN AND UNLABORED. PT WITH EXTERNAL BOREMATIC MACHINE OPERATOR READING SINUS RHYTHM 68. PT WITH IV ACCESS LFA#20 SL. SAFETY MEASURES IN PLACE WITH BED LOCKED AT LOW POSITION, SIDE RAILS UP X 2. WILL CONTINUE TO MONITOR PATIENT THROUGHOUT SHIFT.
[2021-05-12 08:05] VITALS: BP 159/90
[2021-05-12] MEDS: FERROUS SULFATE (325 MG) 325 MG/TAB TABLET PO SCH (08:19)
[2021-05-12] MEDS: CARVEDILOL 12.5 MG TABLET PO SCH (08:19)
[2021-05-12] MEDS: MONTELUKAST SODIUM (10MG) 10 MG TABLET PO SCH (08:20)
[2021-05-12] MEDS: PANTOPRAZOLE 40 MG VIAL IV SCH (08:20)
[2021-05-12 08:21] VITALS: BP 114/60
[2021-05-12] MEDS: AMLODIPINE BESYLATE 10 MG TABLET PO SCH (08:21)
[2021-05-12] MEDS: methylPREDNISolone SOD SUCC 40 MG/ML VIAL IV SCH (08:21)
[2021-05-12] MEDS ORDERED: ASCORBIC ACID 500 MG TABLET PO SCH (09:00)
[2021-05-12] MEDS ORDERED: PRED20TA PO (10:53)
[2021-05-12] MEDS ORDERED: FERR325T23 PO (10:53)
[2021-05-12] MEDS ORDERED: ASCO250T23 PO (10:53)
[2021-05-12] MEDS ORDERED: ALBU18HF2 INH (10:53)
--- NOTE | 2021-05-12 15:53 | NUR ---
MS DISCHARGE NOTES PT WAS DISCHARGED WITH STABLE VITAL SIGNS. NO SOB. BREATHING IS EVEN AND UNLABORED. NO S/SX OF DISTRESS NOTED. DISCHARGE SUMMARY REVIEWED WITH PATIENT AND SIGNED. ALL BELONGINGS RETURNED AND ACCOUNTED FOR. IV ACCESS AND ID BAND REMOVED. ALL QUESTIONS ANSWERED; PT VERBALIZED UNDERSTANDING. PT INSTRUCTED TO F/U WITH DR. MOREIRA TODAY. OFFICE INFORMATION GIVEN TO PATIENT. OBSERVED PT EXIT FACILITY INTO APARTMENT ACROSS THE [address]RE[address].
== END 2021-05-12 13:15 | disposition home or self-care (01) | DRG 378 ==
LOC: ER 16:30 → TELE 21:15 → MED 05-12 11:22
PROVIDERS: ADMIT Nurse Practitioner Family; ATTEND Nurse Practitioner Family
PROC: 30233N1 Transfusion of Nonautologous Red Blood Cells into Peripheral Vein, Percutaneous Approach (ICD-10-PCS; 2021-05-08)
PROC: 0DB68ZX Excision of Stomach, Via Natural or Artificial Opening Endoscopic, Diagnostic (ICD-10-PCS; principal; 2021-05-11)
DX: K31.811 Angiodysplasia of stomach and duodenum with bleeding (principal); D62 Acute posthemorrhagic anemia; I10 Essential (primary) hypertension; Z79.82 Long term (current) use of aspirin; K29.70 Gastritis, unspecified, without bleeding; Z20.822 Contact with and (suspected) exposure to COVID-19; Z88.0 Allergy status to penicillin; L40.9 Psoriasis, unspecified; Z88.8 Allergy status to other drugs, medicaments and biological substances
CPT/HCPCS: 36415; 71045-TC; 80048-TC; 80053-TC; 80076-TC; 82272-TC; 83540-TC; 83735-TC; 83880; 84100-TC; 84443-TC; 84484-TC; 85025-TC; 85027-TC; 85730-TC; 86850-TC; 87081-TC; 88305-TC; 88313-TC; 88342; C9113; C9803; G0378; J2916; J2920; J3490; J7030; J7040; J7050; P9016